=== PATIENT | male | born 1960 | race Caucasian/White ===

== ENCOUNTER 2020-03-11 11:45 | Outpatient (CLI) | payer BC, SELFPAY ==
[2020-03-11 11:56] LABS: Basophils Absolute Auto 0.03 K/mm3 (0.00-0.10); Basophils Percent Auto 0.4 % (0.0-1.0); Eosinophils Percent Auto 1.4 % (1.0-6.0); Hematocrit 43.6 % (40.0-54.0); Immature Granulocyte Absolute 0.03 K/mm3 (0.00-0.00); Immature Granulocyte Percent A 0.4 % (0.0-0.0); Lymphocytes Absolute Auto 2.03 K/mm3 (1.10-4.50); Lymphocytes Percent Auto 28.1 % (18.0-42.0); Mean Corpuscular HGB Conc 34.4 g/dL (32.0-36.0); Mean Corpuscular Hemoglobin 30.2 pg (27.0-31.0); Mean Corpuscular Volume 87.9 fL (78.0-102.0); Mean Platelet Volume 10.7 fl (8.7-11.0); Monocytes Absolute Auto 0.84 K/mm3 (0.10-0.90); Monocytes Percent Auto 11.6 % (2.0-11.0); Neutrophils Absolute Auto 4.2 K/mm3 (1.7-7.2); Neutrophils Percent Auto 58.1 % (50.0-70.0); Platelet Count Result 237 K/mm3 (150-420); Red Blood Count 4.96 M/mm3 (4.70-6.10); White Blood Count 7.2 K/mm3 (4.8-10.8)
[2020-03-11 13:00] LABS: Hemoglobin A1C 6.8 % (<5.7)
[2020-03-11 13:03] LABS: Alanine Aminotransferase 51 U/L (16-63); Albumin Level 4.5 g/dL (3.4-5.0); Alkaline Phosphatase 108 U/L (46-116); Anion Gap 13.4 mmol/L (7-16); Aspartate Amino Transferase 37 U/L (15-37); Bilirubin,Total 0.7 mg/dL (0.00-1.00); Blood Urea Nitrogen 17 mg/dL (7-18); Carbon Dioxide 28 mmol/L (21-32); Chloride 104 mmol/L (98-108); Cholesterol 185 mg/dL (0-200); Estimated Glomerular Filt Rate > 60; Glucose 132 mg/dL (70-99); HDL Direct 43 mg/dL (40-60); LDL Cholesterol Calculated 117 mg/dL (<130); Magnesium 2.2 mg/dL (1.8-2.4); Osmolality Calculated 295 mOsm/kg (285-295); Potassium 4.4 mmol/L (3.5-5.1); Sodium 141 mmol/L (136-145); Total Protein 7.6 g/dL (6.4-8.2); Triglycerides 127 mg/dL (0-150)
[2020-03-14 11:15] LABS: Vitamin D 25 Hydroxy 30 ng/mL (30-100)
== END 2020-03-11 11:46 | disposition home or self-care (01) ==
LOC: CHSLAB 11:49
PROVIDERS: PCP Nurse Practitioner Family; Visit Provider Nurse Practitioner Family
DX: Z00.00 Encounter for general adult medical examination without abnormal findings (principal); E78.5 Hyperlipidemia, unspecified; I10 Essential (primary) hypertension; E11.9 Type 2 diabetes mellitus without complications; R29.6 Repeated falls
CPT/HCPCS: 36415; 80053; 80061; 82306; 83036; 83735; 85025

== ENCOUNTER 2020-03-19 07:18 | Outpatient (CLI) | payer BC, SELFPAY ==
--- NOTE | ~2020-03-19 | XR_ITS ---
EXAMINATION: XR shoulder LT min 2V DATE: 03/19/2020 07:46 INDICATION: Primary osteoarthritis, unspecified site. Left shoulder pain. TECHNIQUE: 4 views of left shoulder were obtained. COMPARISON: Left shoulder radiographs 03/20/2019 FINDINGS: Bone alignment is normal. No fracture. There is mild osteoarthritis of glenohumeral joint a nd moderate osteoarthritis of acromioclavicular joint. There are loose bodies in the axillary recess of the glenohumeral joint. IMPRESSION: 1. Polyarticular osteoarthritis. 2. Loose bodies in the glenohumeral joint. Reviewed, dictated and finalized at location A.
== END 2020-03-19 07:19 | disposition home or self-care (01) ==
PROVIDERS: PCP Nurse Practitioner Family; Visit Provider Nurse Practitioner Family
DX: M19.91 Primary osteoarthritis, unspecified site (principal)
CPT/HCPCS: 73030

== ENCOUNTER 2020-08-13 08:50 | Outpatient (CLI) | payer BC, SELFPAY ==
--- NOTE | ~2020-08-13 | XR_ITS ---
XR finger 3rd LT min 2V 08/13/2020 09:11 Indication: Pain left third PIP joint Procedure: 3 views left third finger Comparison: No prior studies for comparison. Findings: There is an age-indeterminate avulsion fracture ventral base left third middle phalanx at t he PIP joint. No significant soft tissue abnormality. No foreign bodies. Impression: 1: Age-indeterminate avulsion fracture ventral base left third middle phalanx. Reviewed, dictated and finalized at location B. 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
== END 2020-08-13 08:51 | disposition home or self-care (01) ==
LOC: CHSIMG 08:52
PROVIDERS: PCP Family Medicine; Visit Provider Family Medicine
DX: M79.645 Pain in left finger(s) (principal)
CPT/HCPCS: 73140

== ENCOUNTER 2020-09-02 11:43 | Outpatient (CLI) | payer BC, SELFPAY ==
--- NOTE | ~2020-09-02 | XR_ITS ---
EXAMINATION: XR shoulder RT min 2V INDICATION: Right shoulder pain TECHNIQUE: Five views of the right shoulder are submitted. COMPARISON: None FINDINGS: Normal alignment. No fracture. Glenohumeral and acromioclavicular joint spaces are normal. Soft tissues are unremarkable. IMPRESSION: 1. No acute osseous abnormality. Reviewed, dictated and finalized at location A. 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
== END 2020-09-02 11:44 | disposition home or self-care (01) ==
LOC: CHSIMG 11:45
PROVIDERS: PCP Family Medicine; Visit Provider Nurse Practitioner Family
DX: M25.511 Pain in right shoulder (principal)
CPT/HCPCS: 73030

== ENCOUNTER 2020-12-07 09:02 | Outpatient (CLI) | payer BC, SELFPAY ==
--- NOTE | ~2020-12-07 | US_ITS ---
EXAMINATION: US retroperitoneal comp DATE: 12/07/2020 10:36 INDICATION: Frequency of micturition TECHNIQUE: Multiple ultrasound grayscale images of the kidneys were obtained. COMPARISON: None. FINDINGS: The right kidney measures 11.1 x 5.0 x 5.4 cm. The left kidney measures 12.0 x 5.7 x 6.1 cm. The kidn eys demonstrate normal echogenicity. There is no hydronephrosis in either kidney. No stones identifi ed. The bladder is normal with calculated prevoid volume of 150 mL and normal calculated postvoid vol ume of 15 mL. IMPRESSION: 1. Normal kidneys without hydronephrosis. 2. Normal bladder with a calculated postvoid residual bladder volume of 15 mL. Reviewed, dictated and finalized at location A.
[2020-12-07 10:26] LABS: Hemoglobin A1C 7.6 % (<5.7)
== END 2020-12-07 09:03 | disposition home or self-care (01) ==
LOC: CHSLAB 09:05
PROVIDERS: PCP Family Medicine; Visit Provider Family Medicine
DX: R35.0 Frequency of micturition (principal); E11.9 Type 2 diabetes mellitus without complications
CPT/HCPCS: 36415; 76770; 83036; 84153; G0103

== ENCOUNTER 2021-06-25 08:40 | Outpatient (CLI) | payer BC, SELFPAY ==
[2021-06-25 08:58] LABS: Hemoglobin A1C 6.2 % (<5.7)
[2021-06-25 09:20] LABS: Alanine Aminotransferase 39 U/L (16-63); Albumin Level 3.9 g/dL (3.4-5.0); Alkaline Phosphatase 93 U/L (46-116); Anion Gap 8 mmol/L (8-16); Aspartate Amino Transferase 22 U/L (15-37); Bilirubin,Total 0.5 mg/dL (0.00-1.00); Blood Urea Nitrogen 10 mg/dL (7-18); Calcium 9.3 mg/dL (8.5-10.1); Carbon Dioxide 28 mmol/L (21-32); Chloride 104 mmol/L (98-108); Cholesterol 118 mg/dL (0-200); Estimated Glomerular Filt Rate > 60; Glucose 119 mg/dL (70-99); HDL Direct 41 mg/dL (40-60); LDL Cholesterol Calculated 58 mg/dL (<130); Osmolality Calculated 290 mOsm/kg (285-295); Potassium 3.9 mmol/L (3.5-5.1); Sodium 140 mmol/L (136-145); Total Protein 6.6 g/dL (6.4-8.2); Triglycerides 95 mg/dL (0-150)
== END 2021-06-25 08:41 | disposition home or self-care (01) ==
PROVIDERS: PCP Family Medicine; Visit Provider Internal Medicine Cardiovascular Disease
DX: E78.5 Hyperlipidemia, unspecified (principal); E11.9 Type 2 diabetes mellitus without complications
CPT/HCPCS: 36415; 80053; 80061; 83036

== ENCOUNTER 2022-03-28 15:00 | Outpatient (CLI) | payer BC, SELFPAY ==
--- NOTE | ~2022-03-28 | XR_ITS ---
XR knee RT 3V DATE: 03/28/2022 15:34 INDICATION: Medial knee pain for 3 weeks. No known injury. TECHNIQUE: AP, lateral, sunrise views COMPARISON: None FINDINGS: No fracture or dislocation or joint effusion. No periosteal reaction or bone destruction. J oint spaces are well preserved. No radiopaque intra-articular loose body or chondrocalcinosis. IMPRESSION: No significant abnormality Reviewed, dictated and finalized at location B. IMPRESSION: No significant abnormality
[2022-03-28 15:59] LABS: Prostate Specific Antigen 6.6 ng/mL (< OR = 4.0); Uric Acid 6.6 mg/dL (3.5-7.2)
[2022-04-02 20:18] LABS: Vitamin D 25 Hydroxy 44 ng/mL (30-100)
== END 2022-03-28 15:01 | disposition home or self-care (01) ==
LOC: CHSLAB 15:04
PROVIDERS: Nurse Practitioner Family; PCP Family Medicine; Visit Provider Family Medicine
DX: E55.9 Vitamin D deficiency, unspecified (principal); M10.9 Gout, unspecified; R35.1 Nocturia; R35.0 Frequency of micturition; M25.561 Pain in right knee
CPT/HCPCS: 36415; 73562; 82306; 84153; 84550; G0103

== ENCOUNTER 2022-03-31 12:02 | Outpatient (CLI) | payer BC, SELFPAY ==
--- NOTE | ~2022-03-31 | US_ITS ---
EXAMINATION: US retroperitoneal comp DATE: 03/31/2022 12:47 INDICATION: Frequency of micturition. TECHNIQUE: Multiple ultrasound grayscale images of the kidneys were obtained. COMPARISON: Ultrasound 12/07/2020 FINDINGS: The right kidney measures 11.4 x 5.4 x 4.9 cm. The left kidney measures 12.0 x 5.5 x 6.7 cm. The kidn eys demonstrate normal parenchymal echogenicity. There is a 1.8 cm cyst in right kidney. There is a 1 3 mm anechoic and hypoechoic mass in right kidney. There is no hydronephrosis. The bladder is normal. The postvoid bladder volume is 72 mm. IMPRESSION: 1. 13 mm right kidney mass, which may be a hemorrhagic cyst or neoplasm. Abdomen CT or MRI without a nd with contrast is recommended. Reviewed, dictated and finalized at location A. IMPRESSION: 1. 13 mm right kidney mass, which may be a hemorrhagic cyst or neoplasm. Abdom en CT or MRI without and with contrast is recommended.
== END 2022-03-31 12:03 | disposition home or self-care (01) ==
LOC: CHSIMG 12:03
PROVIDERS: PCP Family Medicine; Visit Provider Family Medicine
DX: R35.0 Frequency of micturition (principal)
CPT/HCPCS: 76770

== ENCOUNTER 2022-04-09 08:08 | Outpatient (CLI) | payer BC, SELFPAY ==
--- NOTE | ~2022-04-09 | MR_ITS ---
EXAMINATION: MR abdomen wo/w con DATE: 04/09/2022 11:02 INDICATION: Kidney mass TECHNIQUE: Magnetic resonance imaging (MRI) of the abdomen was performed without and with 20 mL Multi mahi intravenous contrast. Sequences included coronal T2-weighted SS-FSE, coronal and axial FS 2D-F IESTA, axial STIR FSE, axial T2-weighted SS-FSE, axial T2-weighted FS SS-FSE, axial diffusion-weighte d SE, axial dual-echo T1-weighted FSPGR, and axial and coronal T1-weighted LAVA. Postcontrast axial T 1-weighted LAVA images were obtained in a time course. Postcontrast coronal T1-weighted LAVA images w ere obtained. COMPARISON: Ultrasound dated 03/31/2022 FINDINGS: Heart size is normal. No pericardial or pleural effusion. Liver, partially decompressed gallbladder, spleen, pancreas and bilateral adrenal glands are normal. There are bilateral T2 hyperintense nonenha ncing cysts, the largest in the right kidney measuring up to 2.3 cm. Therefore T1 to lesser degree T2 hyperintense hemorrhagic cysts without evident enhancement on postcontrast imaging position in the u pper pole of the right kidney the largest measuring up to 12 mm in maximal diameter correlating with the lesion identified on the prior ultrasound. Visual is portions of the bowels are unremarkable. No pathologically enlarged abdominal bones are unremarkable. lymphadenopathy. IMPRESSION: 1. Multiple bilateral renal cysts including 4 proteinaceous/hemorrhagic cysts at the upper pole of th e right kidney including the lesion of concern identified on prior ultrasound. Reviewed, dictated and finalized at location A. IMPRESSION: 1. Multiple bilateral renal cysts including 4 proteinaceous/hemorrhagic cysts a t the upper pole of the right kidney including the lesion of concern identified on prior ultrasound.
[2022-04-09 08:28] LABS: Estimated Glomerular Filt Rate > 60
== END 2022-04-09 08:09 | disposition home or self-care (01) ==
LOC: CHSIMG 08:09
PROVIDERS: PCP Family Medicine; Visit Provider Family Medicine
DX: R93.5 Abnormal findings on diagnostic imaging of other abdominal regions, including retroperitoneum (principal); N28.9 Disorder of kidney and ureter, unspecified; N28.89 Other specified disorders of kidney and ureter
CPT/HCPCS: 74183; A9577

== ENCOUNTER 2022-07-15 01:49 | Day surgery (SDC) | payer BC, SELFPAY ==
--- NOTE | 2022-07-08 11:46 | PC.NURSE ---
spoke with - pt at work with [employer], unable to take calls, will convey message to pt to hold plavix starting Monday07/11/2022, and will have pt to call me during lunch hour or will get information to give me herself.
[2022-07-11 14:00] VITALS: BMI 25.7
--- NOTE | 2022-07-14 15:21 | PM.HPGS ---
History of Present Illness History of Present Illness Consent: Risks, benefits, and alternatives have been discussed and questions answered. Patient agrees to proceed with procedure. Chief complaint: Change in bowel habits Narrative: Robbin Gonzalez is a 62 year old male Who was referred because of a change in bowel habits. He will have very thin caliber stools for several days and then will not have a bowel movement for couple of days. He has also had pain in the area of his tailbone. . Denies seeing blood in the stools. A Cologuard test was -3 years ago. MRI recently was done which was negative except for renal cysts. Review of Systems Review of Systems: All systems reviewed & are unremarkable except as noted in HPI and below PMFSH Past Medical History Medical History Change in bowel habit Common wart DM2 (diabetes mellitus, type 2) Femoral-femoral bypass graft thrombosis, left Finger fracture, left Finger pain, left Hyperlipidemia Hypertension Narrowing of stools Primary osteoarthritis Sacral pain Surgical History Surgical History History of cholecystectomy Family History Family History Father Family history of dementia Mother Family history of type 2 diabetes mellitus Other Family history of arthritis Family history of malignant neoplasm Social History Social History Smoking packs per day: 1 Smoking cigarettes per day: 20.0 Years smoked: 20 Smoking pack-years: 20.00 Smoking status: Former smoker Tobacco type: cigarettes Smoking end date: 09/11/08 Alcohol intake: never Substance use: never Substance use type: does not use Living arrangements: with family Additional living arrangements comments: . 1 Step-child. Spiritual care concerns: No Meds Home Medications and Allergies Home Medications Medication Instructions Recorded Confirmed Type aspirin 81 mg tablet,delayed 81 mg PO DAILY 09/23/19 07/11/22 History release (Adult Low Dose Aspirin) blood-glucose meter (FreeStyle #1 ea 12/23/20 06/28/22 Rx Lite Meter kit) dulaglutide 1.5 mg/0.5 mL 1.5 mg (0.5 mL) subcut WEEKLY 90 06/06/22 07/11/22 Rx subcutaneous pen injector days #6.5 mL (Trulicity) amlodipine 5 mg tablet 5 mg PO DAILY 07/11/22 07/11/22 History clopidogrel 75 mg tablet 75 mg PO DAILY 07/11/22 07/11/22 History finasteride 5 mg tablet 5 mg PO DAILY 07/11/22 07/11/22 History metformin 1,000 mg tablet 1,000 mg PO BID 07/11/22 07/11/22 History rosuvastatin 20 mg tablet 20 mg PO DAILY 07/11/22 07/11/22 History tamsulosin 0.4 mg capsule 0.4 mg PO DAILY 07/11/22 07/11/22 History Allergies Allergy/AdvReac Type Severity Reaction Status Date / Time prednisone Allergy Severe Swelling Verified 07/15/22 09:22 rofecoxib [Vioxx] AdvReac Intermediate Nausea and Verified 07/15/22 09:22 Vomiting Exam Const: General: alert Orientation/consciousness: patient oriented x3 Resp: Auscultation: clear to auscultation bilaterally Cardio: Rhythm: regular rhythm GI: GI Palp: Yes Soft to palpation and No Tenderness to palpation present (GI) Neuro: General: patient oriented x3 Assessment and Plan Assessment and plan (1) Change in bowel habit: Code(s): R19.4 - Change in bowel habit Status: Acute Assessment and Plan: Colonoscopy with possible biopsy or polypectomy or cautery or injection of substances.
[2022-07-15 09:24] VITALS: BP 126/69; PULSE 78; RESP 18; TEMP 36.1; O2SAT 98
--- NOTE | 2022-07-15 09:39 | WPDANESEPPF ---
Anes - Initial Pre Proc Eval Procedure: Operation Date: 07/15/22 10:15 Proposed Procedures p Colonoscopy - Rodrigo Flaherty MD Date/Time: 07/15/22 09:39 Surgeon: Rodrigo Flaherty MD Pre Op Diagnosis: Change in bowel habits Patient Data Age: 62 Gender: M Height: 1.88 m Weight: 89.1 kg Last Vital Signs Temp 97 F L 07/15/22 09:24 Pulse 78 07/15/22 09:24 Resp 18 07/15/22 09:24 BP 126/69 07/15/22 09:24 Pulse Ox 98 07/15/22 09:24 O2 Del Method Room Air 07/15/22 09:24 Allergies Allergy/AdvReac Type Severity Reaction Status Date / Time prednisone Allergy Severe Swelling Verified 07/15/22 09:22 rofecoxib [Vioxx] AdvReac Intermediate Nausea and Verified 07/15/22 09:22 Vomiting Home Medications Medication Instructions Recorded Confirmed Type aspirin 81 mg tablet,delayed 81 mg PO DAILY 09/23/19 07/11/22 History release (Adult Low Dose Aspirin) blood-glucose meter (FreeStyle #1 ea 12/23/20 06/28/22 Rx Lite Meter kit) dulaglutide 1.5 mg/0.5 mL 1.5 mg (0.5 mL) subcut WEEKLY 90 06/06/22 07/11/22 Rx subcutaneous pen injector days #6.5 mL (Trulicity) amlodipine 5 mg tablet 5 mg PO DAILY 07/11/22 07/11/22 History clopidogrel 75 mg tablet 75 mg PO DAILY 07/11/22 07/11/22 History finasteride 5 mg tablet 5 mg PO DAILY 07/11/22 07/11/22 History metformin 1,000 mg tablet 1,000 mg PO BID 07/11/22 07/11/22 History rosuvastatin 20 mg tablet 20 mg PO DAILY 07/11/22 07/11/22 History tamsulosin 0.4 mg capsule 0.4 mg PO DAILY 07/11/22 07/11/22 History Patient hx anesthesia problems: none Family hx anesthesia problems: none Results Review: All pre-operative results and documents have been reviewed as part of the pre-operative evaluation. [facility] Past Medical History Medical History (Updated 06/28/22 @ 14:28 by Soraya Corona APRN) Change in bowel habit Common wart DM2 (diabetes mellitus, type 2) Femoral-femoral bypass graft thrombosis, left Finger fracture, left Finger pain, left Hyperlipidemia Hypertension Narrowing of stools Primary osteoarthritis Sacral pain Surgical History Surgical History History of cholecystectomy Family History Family History Father Family history of dementia Mother Family history of type 2 diabetes mellitus Other Family history of arthritis Family history of malignant neoplasm Social History Social History Smoking packs per day: 1 Smoking cigarettes per day: 20.0 Years smoked: 20 Smoking pack-years: 20.00 Smoking status: Former smoker Tobacco type: cigarettes Smoking end date: 09/11/08 Alcohol intake: never Substance use: never Substance use type: does not use Living arrangements: with family Additional living arrangements comments: . 1 Step-child. Spiritual care concerns: No Anes - Eval Final PreProcedure Day of Procedure 07/15/22 09:39 Patient weight: normal Heart: regular rate and rhythm Lungs: clear to auscultation Airway: Mallampati scale class II Neurological: alert and oriented Last oral intake: >/= 8 hours ASA classification: III Emergent: no Anesthetic plan: proceed Anesthesia type and monitoring: general GIVS and standard monitoring Results Review: All pre-operative results and documents have been reviewed as part of the pre-operative evaluation. Informed Consent: The patient's anesthetic plan and its attendant risks and benefits were discussed with the patient/family/POA. Questions were solicited and answers provided to the satisfaction of the patient/family/POA.
[2022-07-15] MEDS: LACTATED RINGERS 1,000 ML 150 ML IV CONT (09:41)
[2022-07-15 09:45] LABS: Glucose Point of Care 101 mg/dl (65-105)
[2022-07-15 10:22] VITALS: BP 108/71; PULSE 77; RESP 23; O2SAT 98
[2022-07-15 10:32] VITALS: BP 111/68; PULSE 77; RESP 24; O2SAT 98
[2022-07-15 10:42] VITALS: BP 112/79; PULSE 71; RESP 24; O2SAT 99
== END 2022-07-15 10:45 | disposition home or self-care (01) ==
PROVIDERS: PCP Family Medicine; Visit Provider Internal Medicine Gastroenterology
PROC: 0DJD8ZZ Inspection of Lower Intestinal Tract, Via Natural or Artificial Opening Endoscopic (ICD-10-PCS; CPT 45378; principal; 2022-07-15 10:15)
DX: R19.4 Change in bowel habit (principal); D12.4 Benign neoplasm of descending colon; E11.9 Type 2 diabetes mellitus without complications; E78.5 Hyperlipidemia, unspecified; I10 Essential (primary) hypertension; Z87.891 Personal history of nicotine dependence
CPT/HCPCS: 45385; 82948; 88305; J2001; J2704; J7120

== ENCOUNTER 2023-02-03 09:27 | Outpatient (CLI) | payer OTHER, SELFPAY ==
[2023-02-03 09:43] LABS: Hematocrit 42.7 % (37.0-46.0); Hemoglobin 14.2 g/dL (12.4-15.3); Mean Corpuscular HGB Conc 33.3 g/dL (32.0-36.0); Mean Corpuscular Hemoglobin 29.5 pg (27.0-31.0); Mean Corpuscular Volume 88.8 fL (78.0-102.0); Mean Platelet Volume 10.6 fl (8.7-11.0); Platelet Count Result 270 K/mm3 (150-420); Red Blood Count 4.81 M/mm3 (4.70-6.10); Red Cell Distribution Width 13.2 % (11.6-14.4); White Blood Count 8.6 K/mm3 (4.8-10.8)
[2023-02-03 09:48] LABS: Creatinine Urine 80.85 mg/dL (40-278); MALB Creatinine Ratio 98.7 mg/g (0-30); Microalbumin Urine Random 79.8 mg/L
[2023-02-03 09:50] LABS: Hemoglobin A1C 6.3 % (<5.7)
[2023-02-03 10:28] LABS: Alanine Aminotransferase 59 U/L (16-63); Albumin Level 3.9 g/dL (3.4-5.0); Alkaline Phosphatase 118 U/L (46-116); Anion Gap 8 mmol/L (8-16); Aspartate Amino Transferase 38 U/L (15-37); Bilirubin,Total 0.6 mg/dL (0.00-1.00); Blood Urea Nitrogen 13 mg/dL (7-18); Calcium 9.5 mg/dL (8.5-10.1); Carbon Dioxide 27 mmol/L (21-32); Chloride 104 mmol/L (98-108); Cholesterol 124 mg/dL (0-200); Estimated Glomerular Filt Rate > 60; Glucose 119 mg/dL (70-99); HDL Direct 45 mg/dL (40-60); LDL Cholesterol Calculated 53 mg/dL (<130); Osmolality Calculated 289 mOsm/kg (285-295); Potassium 4.3 mmol/L (3.5-5.1); Prostate Specific Antigen 8.1 ng/mL (< OR = 4.0); Sodium 139 mmol/L (136-145); Total Protein 7.5 g/dL (6.4-8.2); Triglycerides 132 mg/dL (0-150); Uric Acid 5.1 mg/dL (3.5-7.2)
== END 2023-02-03 09:28 | disposition home or self-care (01) ==
LOC: CHSLAB 09:29
PROVIDERS: PCP Family Medicine; Visit Provider Family Medicine
DX: E11.9 Type 2 diabetes mellitus without complications (principal); I10 Essential (primary) hypertension; R35.1 Nocturia; M10.9 Gout, unspecified
CPT/HCPCS: 36415; 80053; 80061; 82043; 83036; 84153; 84550; 85027; G0103

== ENCOUNTER 2023-04-07 07:18 | Outpatient (CLI) | payer OTHER, SELFPAY ==
[2023-04-07 07:52] LABS: Uric Acid 6.4 mg/dL (3.5-7.2)
== END 2023-04-07 07:19 | disposition home or self-care (01) ==
PROVIDERS: PCP Family Medicine
DX: M10.9 Gout, unspecified (principal)
CPT/HCPCS: 36415; 84550

== ENCOUNTER 2023-04-18 08:35 | Outpatient (CLI) | payer OTHER, SELFPAY ==
--- NOTE | ~2023-04-18 | CT_ITS ---
Non-contrast CT scan of the Abdomen and Pelvis Clinical indication: Left groin swelling/lump Technique: 2.5 mm axial scans were obtained through the abdomen and pelvis without intravenous or or al contrast. Dose reduction technique was used on this scan by utilizing automated exposure control a nd iterative reconstruction technique. The dose-length product (DLP) was 782.02 mGy-cm. Findings: Images through the lung bases reveal no abnormalities. There is no evidence of renal or ureteral calculi. The kidneys and the ureters are nondilated. The liver, spleen, pancreas, gallbladder, and adrenals appear normal. There are atherosclerotic calci fications of the aorta. There is no evidence of bowel obstruction. Images through the pelvis were performed. There is no evidence of ascites or lymphadenopathy. Urinary bladder unremarkable. No pelvic mass evident. No hernia evident. There is focal postoperative change in the left inguinal region with probable surgical clips probably related to prior vascular surgery. Impression: Focal postoperative change in the left inguinal region, likely related to prior vascular surgery. Cor relate with surgical history. No hernia or other mass lesion evident. Reviewed, dictated and finalized at location . Impression: Focal postoperative change in the left inguinal region, likely related to prior vascular surgery. Correlate with surgical history. No hernia or other mass les ion evident.
== END 2023-04-18 08:36 | disposition home or self-care (01) ==
LOC: CHSIMG 08:36
PROVIDERS: PCP Family Medicine; Visit Provider Family Medicine
DX: R19.09 Other intra-abdominal and pelvic swelling, mass and lump (principal)
CPT/HCPCS: 74176

== ENCOUNTER 2023-06-26 07:00 | Outpatient (NON) | payer OTHER, SELFPAY | END 2023-06-26 07:01 | disposition home or self-care (01) | PROVIDERS: PCP Family Medicine; Visit Provider Internal Medicine Gastroenterology | DX: Z12.11 Encounter for screening for malignant neoplasm of colon (principal); D12.8 Benign neoplasm of rectum | CPT/HCPCS: 88305 ==

== ENCOUNTER 2023-06-26 08:59 | Day surgery (SDC) | payer OTHER, SELFPAY ==
[2023-06-07 12:46] VITALS: BMI 26.0
--- NOTE | 2023-06-07 13:49 | PC.NURSE ---
PRE OP phone call made to [facility]. 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 he takes the plavix due to a fem fem bypass surgery in 2010 and also quit smoking at that time. We discussed his home medications and decided it was better to hold all morning medications for less confusion. he is doing a 2 day cleanse d/t poor prep last June 2022, where they also found polyps. he is waiting for his instructions in the mail from the office.
--- NOTE | 2023-06-23 14:45 | PM.HPGS ---
History of Present Illness History of Present Illness Consent: Risks, benefits, and alternatives have been discussed and questions answered. Patient agrees to proceed with procedure. Chief complaint: History of Colon Polyps Narrative: Robbin Gonzalez is a 63 year old male Referred for colon cancer screening. He had colonoscopy last year was removal of 1 tubular adenoma. At that time his prep was suboptimal therefore he returns for hopefully a more thorough examination today. Review of Systems Review of Systems: All systems reviewed & are unremarkable except as noted in HPI and below PMFSH Past Medical History Medical History Change in bowel habit Common wart DM2 (diabetes mellitus, type 2) Femoral-femoral bypass graft thrombosis, left Finger fracture, left Finger pain, left Hyperlipidemia Hypertension Narrowing of stools Primary osteoarthritis Sacral pain Surgical History Surgical History History of cholecystectomy Family History Family History Father Family history of dementia Mother Family history of type 2 diabetes mellitus Other Family history of arthritis Family history of malignant neoplasm Social History Social History Smoking packs per day: 1 Smoking cigarettes per day: 20.0 Years smoked: 20 Smoking pack-years: 20.00 Smoking status: Former smoker Tobacco type: cigarettes Smoking end date: 09/11/08 Alcohol intake: never Substance use: never Substance use type: does not use Lack of Transportation: No Lack of Food: Never True Current Housing: I Have Housing Concerned About Future Housing: No Difficulty Paying Gas/Electric Bills: No Difficulty Paying for Meds: No Currently Unemployed: No Education: Associate Degree Difficulty w/ Childcare or Family Care: No Living arrangements: with family Additional living arrangements comments: Spiritual care concerns: No Meds Home Medications and Allergies Home Medications Medication Instructions Recorded Confirmed Type aspirin 81 mg tablet,delayed 81 mg PO DAILY 09/23/19 06/26/23 History release (Adult Low Dose Aspirin) blood-glucose meter (FreeStyle #1 ea 12/23/20 06/26/23 Rx Lite Meter kit) finasteride 5 mg tablet 5 mg PO DAILY 07/11/22 06/26/23 History clopidogrel 75 mg tablet 75 mg PO DAILY #90 tabs 10/20/22 06/26/23 Rx dulaglutide 1.5 mg/0.5 mL 1.5 mg (0.5 mL) subcut WEEKLY 90 10/20/22 06/26/23 Rx subcutaneous pen injector days #6.5 mL (Trulicity) metformin 1,000 mg tablet 1,000 mg PO BID #180 tabs 10/20/22 06/26/23 Rx rosuvastatin 20 mg tablet See Rx Instructions .Route 10/20/22 06/26/23 Rx .COMPLEX #90 tabs lisinopril 10 mg tablet 10 mg PO DAILY #90 tabs 02/27/23 06/26/23 Rx colchicine (gout) 0.6 mg tablet 0.6 mg PO BID 04/13/23 06/26/23 History lactulose 10 gram/15 mL oral 10 g (15 mL) PO DAILY PRN 06/14/23 06/26/23 Rx solution constipation #237 mL Allergies Allergy/AdvReac Type Severity Reaction Status Date / Time prednisone Allergy Severe Swelling Verified 06/26/23 11:40 rofecoxib [Vioxx] AdvReac Intermediate Nausea and Verified 06/26/23 11:40 Vomiting Exam Resp: Auscultation: clear to auscultation bilaterally Cardio: Rate: regular rate Rhythm: regular rhythm GI: GI Palp: Yes Soft to palpation and No Tenderness to palpation present (GI) Assessment and Plan Assessment and plan (1) Colon cancer screening: Code(s): Z12.11 - Encounter for screening for malignant neoplasm of colon Status: Acute Assessment and Plan: Colonoscopy with possible biopsy or polypectomy or cautery or injection of substances.
[2023-06-26 11:54] VITALS: BP 146/98; PULSE 105; RESP 16; TEMP 36.7; O2SAT 100
[2023-06-26] MEDS: LACTATED RINGERS 1,000 ML 150 ML IV CONT (11:57)
--- NOTE | 2023-06-26 12:23 | WPDANESEPPF ---
Anes - Initial Pre Proc Eval Procedure: Operation Date: 06/26/23 13:00 Proposed Procedures p Diagnostic Colonoscopy - Rodrigo Flaherty MD Date/Time: 06/26/23 12:23 Surgeon: Rodrigo Flaherty MD Pre Op Diagnosis: History of Colon Polyps Patient Data Age: 63 Gender: M Height: 1.88 m Weight: 87.85 kg Last Vital Signs Temp 36.7 C 06/26/23 11:54 Pulse 105 H 06/26/23 11:54 Resp 16 06/26/23 11:54 BP 146/98 H 06/26/23 11:54 Pulse Ox 100 06/26/23 11:54 O2 Del Method Room Air 06/26/23 11:54 Allergies Allergy/AdvReac Type Severity Reaction Status Date / Time prednisone Allergy Severe Swelling Verified 06/26/23 11:40 rofecoxib [Vioxx] AdvReac Intermediate Nausea and Verified 06/26/23 11:40 Vomiting Home Medications Medication Instructions Recorded Confirmed Type aspirin 81 mg tablet,delayed 81 mg PO DAILY 09/23/19 06/26/23 History release (Adult Low Dose Aspirin) blood-glucose meter (FreeStyle #1 ea 12/23/20 06/26/23 Rx Lite Meter kit) finasteride 5 mg tablet 5 mg PO DAILY 07/11/22 06/26/23 History clopidogrel 75 mg tablet 75 mg PO DAILY #90 tabs 10/20/22 06/26/23 Rx dulaglutide 1.5 mg/0.5 mL 1.5 mg (0.5 mL) subcut WEEKLY 90 10/20/22 06/26/23 Rx subcutaneous pen injector days #6.5 mL (Trulicity) metformin 1,000 mg tablet 1,000 mg PO BID #180 tabs 10/20/22 06/26/23 Rx rosuvastatin 20 mg tablet See Rx Instructions .Route 10/20/22 06/26/23 Rx .COMPLEX #90 tabs lisinopril 10 mg tablet 10 mg PO DAILY #90 tabs 02/27/23 06/26/23 Rx colchicine (gout) 0.6 mg tablet 0.6 mg PO BID 04/13/23 06/26/23 History lactulose 10 gram/15 mL oral 10 g (15 mL) PO DAILY PRN 06/14/23 06/26/23 Rx solution constipation #237 mL Patient hx anesthesia problems: none Family hx anesthesia problems: none Results Review: All pre-operative results and documents have been reviewed as part of the pre-operative evaluation. [facility] Past Medical History Medical History Change in bowel habit Common wart DM2 (diabetes mellitus, type 2) Femoral-femoral bypass graft thrombosis, left Finger fracture, left Finger pain, left Hyperlipidemia Hypertension Narrowing of stools Primary osteoarthritis Sacral pain Surgical History Surgical History History of cholecystectomy Family History Family History Father Family history of dementia Mother Family history of type 2 diabetes mellitus Other Family history of arthritis Family history of malignant neoplasm Social History Social History Smoking packs per day: 1 Smoking cigarettes per day: 20.0 Years smoked: 20 Smoking pack-years: 20.00 Smoking status: Former smoker Tobacco type: cigarettes Smoking end date: 09/11/08 Alcohol intake: never Substance use: never Substance use type: does not use Lack of Transportation: No Lack of Food: Never True Current Housing: I Have Housing Concerned About Future Housing: No Difficulty Paying Gas/Electric Bills: No Difficulty Paying for Meds: No Currently Unemployed: No Education: Associate Degree Difficulty w/ Childcare or Family Care: No Living arrangements: with family Additional living arrangements comments: Spiritual care concerns: No Anes - Eval Final PreProcedure Day of Procedure 06/26/23 12:23 Patient weight: normal Heart: regular rate and rhythm Lungs: decreased breath sounds Airway: Mallampati scale class II Neurological: alert and oriented Last oral intake: >/= 8 hours ASA classification: III Emergent: no Anesthetic plan: proceed Anesthesia type and monitoring: general GIVS and standard monitoring Results Review: All pre-operative results and documents have been reviewed as part of the pre-operative evaluation.
[2023-06-26 13:01] VITALS: BP 121/80; PULSE 90; RESP 18; O2SAT 97
--- NOTE | 2023-06-26 13:06 | WPDANESPN ---
Anes - Prog Note Post-Op Date/Time: 06/26/23 13:06 Cardiovascular status: normal Respiratory status: normal Airway patency: baseline Mental status: baseline Post-Op hydration status: normal Vital Signs: Last Vital Signs Temp 36.7 C 06/26/23 11:54 Pulse 90 06/26/23 13:01 Resp 18 06/26/23 13:01 BP 121/80 06/26/23 13:01 Pulse Ox 97 06/26/23 13:01 O2 Del Method Room Air 06/26/23 13:01 Pain Score (VAS): 0 I/O: Intake & Output 06/25/23 06/26/23 06/26/23 23:59 07:59 15:59 Intake Total 500 Balance 500 Patient Feedback: Patient satisfied with anesthetic care.
[2023-06-26 13:11] VITALS: BP 122/79; PULSE 79; RESP 14; O2SAT 99
[2023-06-26 13:21] VITALS: BP 132/76; PULSE 64; RESP 14; O2SAT 100
== END 2023-06-26 13:35 | disposition home or self-care (01) ==
PROVIDERS: PCP Family Medicine; Visit Provider Internal Medicine Gastroenterology
PROC: 0DJD8ZZ Inspection of Lower Intestinal Tract, Via Natural or Artificial Opening Endoscopic (ICD-10-PCS; CPT 45378; principal; 2023-06-26 13:00)
DX: Z12.11 Encounter for screening for malignant neoplasm of colon (principal); D12.8 Benign neoplasm of rectum; K57.30 Diverticulosis of large intestine without perforation or abscess without bleeding
CPT/HCPCS: 45380

== ENCOUNTER 2023-09-28 12:47 | Outpatient (CLI) | payer OTHER, SELFPAY ==
--- NOTE | 2023-10-03 10:10 | WPDPFTINT ---
PFT Procedure Performed PFT Procedure Performed Plethysmography (Lung Vol) Diffusing Cap (DLCO) Flow Vol Loop Spirometry w/o Bronchodil PFT Interpretation DOS: 09/28/2023 REQUESTING: Dr. Thomas George REASON FOR TESTING: dyspnea PULMONARY FUNCTION TESTS Results are reliable and reproducible. Spirometry: FEV1 is 3.54 L, 93% predicted, normal. FVC is 4.56 L, 94% predicted, normal. FEV1/ FVC ratio is 78%, normal. No bronchodilator was administered. Lung volumes: Total lung capacity is 6.98 L, 93%, normal. Residual volume is 2.42 L, 89%, normal. RV/ TLC is 35%, normal. Airway resistance 249%, elevated. Diffusion: DLCO is 21.4, 86% predicted, normal. DLCO /VA is 3.19, 86% predicted, normal. Flow volume loop: Normal IMPRESSION: This study shows normal spirometry, normal lung volumes and normal diffusion. No bronchodilator was administered. There are no prior studies for comparison. Chaya Sloan MD
== END 2023-09-28 12:48 | disposition home or self-care (01) ==
LOC: CHSCARD 12:48
PROVIDERS: PCP Family Medicine; Visit Provider Family Medicine
DX: R06.00 Dyspnea, unspecified (principal)
CPT/HCPCS: 94010; 94726; 94729

== ENCOUNTER 2023-09-29 11:47 | Outpatient (CLI) | payer OTHER, SELFPAY ==
[2023-09-29 12:45] LABS: Prostate Specific Antigen 15.1 ng/mL (< OR = 4.0)
== END 2023-09-29 11:48 | disposition home or self-care (01) ==
LOC: ANHLAB 11:49
PROVIDERS: PCP Family Medicine; Visit Provider Nurse Practitioner
DX: R10.2 Pelvic and perineal pain (principal); R97.20 Elevated prostate specific antigen [PSA]
CPT/HCPCS: 36415; 84153; G0103

== ENCOUNTER 2023-10-09 07:37 | Outpatient (CLI) | payer OTHER, SELFPAY ==
--- NOTE | 2023-10-09 07:41 | EST_ITS ---
Patient Info Name: Robbin Gonzalez Age: 63 years : 1960 Gender: Male Ht: 74 in Wt: 198 lbs BSA: 2.17 m2 HR: 70 bpm BP: 123 / 83 mmHg Heart Rhythm: Incomplete RBBB, Sinus Rhythm Technical Quality: Good Exam Date: 10/09/2023 9:21 AM Exam Location: Echo Lab Patient Status: Outpatient Admit Date: 10/09/2023 Any Known Allergies: Prednisone, Vioxx Staff Ordering Physician: Thomas George DO Attending Provider: Patti Prado NMAA Exam Type: CA stress fiona w NM Study Info A regadenoson stress test was performed. History/Risk Factors Hypertension: Yes Dyslipidemia: Yes Diabetes Mellitus: Yes Summary 1. 1. Negative lexiscan stress test for ischemic ST changes by ECG criteria. 2. 2. Stable hemodynamics throughout the test. 3. 3. Nuclear scan to follow and will be reported separately. Please correlate with it. Protocol: LEXISCAN Stress ECG Details Stage: REST Duration (min): 1 min : 1 sec HR (bpm): 68 SBP (mmHg): 127 DBP (mmHg): 83 Stage: REST Duration (min): 6 min : 30 sec HR (bpm): 70 SBP (mmHg): 127 DBP (mmHg): 83 Stage: STAGE 1 Duration (min): 0 min : 24 sec HR (bpm): 70 SBP (mmHg): 127 DBP (mmHg): 83 Stage: RECOVERY Duration (min): 0 min : 35 sec HR (bpm): 87 SBP (mmHg): 127 DBP (mmHg): 83 Stage: RECOVERY Duration (min): 1 min : 35 sec HR (bpm): 100 SBP (mmHg): 127 DBP (mmHg): 83 Stage: RECOVERY Duration (min): 2 min : 35 sec HR (bpm): 95 SBP (mmHg): 122 DBP (mmHg): 67 Stage: RECOVERY Duration (min): 3 min : 35 sec HR (bpm): 90 SBP (mmHg): 107 DBP (mmHg): 68 Stage: RECOVERY Duration (min): 4 min : 35 sec HR (bpm): 87 SBP (mmHg): 110 DBP (mmHg): 71 Stage: RECOVERY Duration (min): 5 min : 35 sec HR (bpm): 82 SBP (mmHg): 109 DBP (mmHg): 75 Stage: RECOVERY Duration (min): 6 min : 29 sec HR (bpm): --- SBP (mmHg): 109 DBP (mmHg): 75 Rest HR: 70 bpm Peak HR: 101 bpm Rest Sys BP: 127 mmHg Peak Sys BP: 125 mmHg Max Pred HR: 155 bpm % Max Pred HR: 65 % Target HR: 132 bpm Max RPP: 12,625 bpm*mmHg Termination Reason: Completed Protocol Cardiac Symptoms: None Total Time: 0 min : 24 sec Rest Coffman BP: 83 mmHg Peak Coffman BP: 66 mmHg Total Dose: 0.4 mg Resting ECG Normal sinus rhythm with incomplete RBBB. Stress ECG No abnormal ST/T wave changes. Arrhythmias None. Report Signatures
--- NOTE | 2023-10-09 13:53 | WPDCARIOSTRE ---
Nuclear Stress Test INDICATIONS Indications: SOB PROCEDURE Procedure Performed: Myocardial Perf Spect-Multi Procedure: Patient underwent a lexiscan stress test and was immediately injected with 32.7 mCi of cardiolyte. Multiple tomographic images were obtained. These are of good quality. There is no perfusion defects with stress imaging. A separate resting images were obtained after patient was injected with 10.2 mCi of cardiolyte. Multiple tomographic images were obtained. These are of good quality. There is no perfusion defects with rest imaging. CONCLUSION Conclusion: 1. Normal myocardial perfusion imaging demonstrating no perfusion defects with stress or rest imaging. 2. No reversible ischemia. 3. Left ventriculogram demonstrates normal measured ejection fraction of 64% with no wall motion abnormalities. 4. TID score 1.05 is normal.
== END 2023-10-09 07:38 | disposition home or self-care (01) ==
LOC: CHSCARD 07:38
PROVIDERS: PCP Family Medicine; Visit Provider Family Medicine
DX: R06.00 Dyspnea, unspecified (principal)
CPT/HCPCS: 78452; 93017; A9502; J2785

== ENCOUNTER 2023-10-17 09:20 | Outpatient (CLI) | payer OTHER, SELFPAY ==
--- NOTE | ~2023-10-17 | MR_ITS ---
EXAMINATION: MR pelvis wo/w con, MR sacrum wo/w con DATE: 10/17/2023 11:08 INDICATION: Constant perineal pain. Unable to feel passage of bowel movements TECHNIQUE: 1. Magnetic resonance imaging (MRI) of the pelvis was performed without and with 18 mL Multihance int ravenous contrast. Fullfield sequences of the pelvis included axial and coronal T2-weighted SS FSE, c oronal 2D FIESTA, axial T1-weighted FSPGR, axial dual-echo T1-weighted FSPGR and axial T1 weighted LA VA. Postcontrast sequences included a time course axial T1-weighted LAVA with full-field of view of t he pelvis. 2. MRI of the sacrum was performed without and with identical 18 mL MultiHance intravenous contrast b olus. Sequences included sagittal PD-weighted FS FSE, axial and coronal T1-weighted FSE and T2-weight ed FS FSE, coronal T2-weighted FSE, axial T1-weighted FS FSE and postcontrast axial and coronal T1-we ighted FS FSE. COMPARISON: CT abdomen pelvis dated 04/18/2023 FINDINGS: Trabeculated mucosal surface to the bladder which could be seen in the setting of chronic outlet obst ruction. There is enlargement of the prostate. There is heterogeneous enhancement of the prostate wit h suggestion of an approximately 3 cm nodular region in the left side of the prostate. There is asymm etry to the bilateral seminal vesicles with the left seminal vesicle which abuts the nodular region o f enhancement at the prostate demonstrating some mildly enhancing soft tissue density which replaces the nonenhancing T2 hyperintense typical appearance of the right seminal vesicle. Appearance is ric rning for prostate cancer with invasion of the seminal vesicle. There is linear enhancement extending along the asymmetrically thickened left mesorectal fascia also suspicious for local invasion. Visual ized portion of the bowels are unremarkable with no obstruction. No free fluid in the pelvis. There a re asymmetrically enlarged left external iliac chain lymph nodes, the largest measuring 1.9 x 1.2 cm. Additional mildly prominent left common iliac chain lymph node measuring 10 x 8 mm which is within n ormal limits but still suspicious. Bone alignment is normal. There is mild enhancement at the periphe ry of a T1 and T2 hypointense lesion at the left sacral ala which measures 3.5 cm medial to lateral a nd 3.4 cm craniocaudally involving the S4 and S5 segments is concerning for metastatic disease. Simil ar low T1 signal mildly enhancing impression 1.5 cm lesion with lobular margins at the medial margin of the subcapital right femur. No other suspicious bone lesions identified. IMPRESSION: 1. Prostatomegaly with 3 cm enhancing mass at the left side of the prostate which appears to invade t he left seminal vesicle with enhancement extending along the asymmetrically thickened left mesorectal fascia which is concerning for locally invasive prostate cancer. 2. Mild lymphadenopathy along the left external iliac chain measuring up to 1.9 x 1.2 cm and mildly p rominent but still normal-sized 10 x 8 mm left common iliac chain lymph node which are suspicious for metastatic disease. 3. 3.4 x 3.5 cm enhancing marrow replacing lesion in the left sacral ala and similar but smaller 1.5 cm lesion at the inferomedial aspect of the subcapital right femur, both suspicious for metastatic di sease. Reviewed, dictated and finalized at location A. RINGER IMPRESSION: 1. Prostatomegaly with 3 cm enhancing mass at the left side of the prostate whi ch appears to invade the left seminal vesicle with enhancement extending along the asymmetrically thickened left mesorectal fascia which is concerning for loc ally invasive prostate cancer. 2. Mild lymphadenopathy along the left external iliac chain measuring up to 1.9 x 1.2 cm and mildly prominent but still normal-sized 10 x 8 mm left common dayna a
== END 2023-10-17 09:21 | disposition home or self-care (01) ==
PROVIDERS: PCP Family Medicine; Visit Provider Nurse Practitioner
DX: N40.0 Benign prostatic hyperplasia without lower urinary tract symptoms (principal); K64.9 Unspecified hemorrhoids; R97.20 Elevated prostate specific antigen [PSA]; R59.0 Localized enlarged lymph nodes; M53.3 Sacrococcygeal disorders, not elsewhere classified; M89.8X5 Other specified disorders of bone, thigh
CPT/HCPCS: 72197; A9577

== ENCOUNTER 2023-11-10 13:10 | Outpatient (CLI) | payer OTHER, SELFPAY ==
--- NOTE | ~2023-11-10 | PE_ITS ---
EXAMINATION: PET_PETPSMAST_PT DATE: 11/10/2023 15:16 INDICATION: Prostate cancer. TECHNIQUE: 9.567 mCi of piflufolastat F-18 was administered intravenously. Low dose computed tomograp hy (CT) images were acquired from the base of the brain to the proximal thighs for attenuation correc tion and anatomic localization. Automated exposure control was employed. Dose-length product (DLP) wa s 733 mGy-cm. Positron emission tomography (PET) images were acquired in the same distribution. COMPARISON: CT abdomen and pelvis 04/18/2023, pelvis MRI 10/17/2023 FINDINGS: Head/neck: There are no pathologically enlarged lymph nodes. Chest: There is mild atelectasis bilaterally. No pleural effusion. The heart size is normal. There ar e coronary artery calcifications. No pericardial effusion. There is bilateral gynecomastia. Abdomen/pelvis/proximal thighs: The liver, spleen, pancreas, adrenal glands are normal. The gallbladd er is absent. There is a 2.4 cm cyst in right kidney. Left kidney is normal. There is calcified ather osclerosis of the aorta and many of the other arteries. The prostate is mildly enlarged. There is inc reased activity in the prostate with maximum SUV of 11.1. There is diffuse bladder wall thickening, l ikely secondary to chronic outlet obstruction. There are no dilated loops of bowel. There is a 1.7 x 1.2 cm left external iliac node with maximum SUV of 36.7. There is increased activity in normal-sized aortocaval, left para-aortic, left common iliac, left external iliac, and left internal iliac lymph nodes. There is a sclerotic lesion in the left sacrum with increased activity. There is a focus of sc lerosis in right femoral head without increased activity, likely a benign bone island.. There is a va scular graft in left thigh. IMPRESSION: 1. Mildly enlarged prostate with increased activity, consistent with primary malignancy. 2. Increased activity in retroperitoneal and pelvic lymph nodes, consistent with metastatic disease. 3. Sclerotic lesion in left sacrum with increased activity, consistent with metastatic disease. Reviewed, dictated and finalized at location A. TS PHOTOGRAPHER IMPRESSION: 1. Mildly enlarged prostate with increased activity, consistent with primary ma lignancy. 2. Increased activity in retroperitoneal and pelvic lymph nodes, consistent wit h metastatic disease. 3. Sclerotic lesion in left sacrum with increased activity, consistent with met astatic disease.
== END 2023-11-10 13:11 | disposition home or self-care (01) ==
PROVIDERS: PCP Family Medicine; Visit Provider Urology
DX: C61 Malignant neoplasm of prostate (principal)
CPT/HCPCS: 78815; A9595

== ENCOUNTER 2024-07-29 06:54 | Outpatient (CLI) | payer OTHER, SELFPAY ==
--- NOTE | ~2024-07-29 | NM_ITS ---
EXAMINATION: NM bone scan whole body DATE: 07/29/2024 11:36 INDICATION: Prostate cancer TECHNIQUE: 24.5 mCi Tc-99m HDP was administered intravenously. Delayed whole-body scintigrams were o btained. COMPARISON: PET/CT dated 11/10/2023. No more recent imaging available for comparison. FINDINGS: Likely degenerative joint centered uptake at the bilateral acromioclavicular, right sternoclavicular joints at the bilateral carpi and at the right first metatarsophalangeal joint. Additional likely deg enerative discogenic uptake at the lower cervical spine with severe degenerative disease evident on p rior PET/CT and associated with severe facet osteoarthritis at the right C3-C4 facet joint. The regio n of the previous noted PSA may avid sclerotic lesion at the caudal aspect of the left sacral ala is obscured by the intense bladder uptake and overlying shielding. No other suspicious foci of abnormal bone uptake to suggest additional osseous metastatic disease. IMPRESSION: 1. The region of the sclerotic lesion with increased PSA may uptake consistent with metastatic diseas e seen on the prior study at the inferior left sacral ala is obscured in the current study by activit y in the bladder and overlying shielding. No other lesions suspicious for osseous metastatic disease. Reviewed, dictated and finalized at location B. S NOVELTY MAKER IMPRESSION: 1. The region of the sclerotic lesion with increased PSA may uptake consistent with metastatic disease seen on the prior study at the inferior left sacral ala is obscured in the current study by activity in the bladder and overlying shie lding. No other lesions suspicious for osseous metastatic disease.
== END 2024-07-29 06:55 | disposition home or self-care (01) ==
LOC: ANHIMG 06:57
PROVIDERS: PCP Family Medicine; Visit Provider Urology
DX: C61 Malignant neoplasm of prostate (principal)
CPT/HCPCS: 78306; A9503

== ENCOUNTER 2024-08-02 09:22 | Outpatient (CLI) | payer OTHER, SELFPAY ==
--- NOTE | ~2024-08-02 | CT_ITS ---
EXAMINATION: CTA chest PE protocol DATE: 08/02/2024 17:19 INDICATION: Dyspnea. TECHNIQUE: Computed tomography angiography (CTA) of the chest was performed with 100 mL Omnipaque-350 intravenous contrast timed to evaluate the pulmonary arteries. Coronal maximum intensity projection 3D-reconstructions were created by the technologist. Automated exposure control and iterative reconst ruction technique were employed. The dose-length product was 523.74 mGy-cm. COMPARISON: CT abdomen and pelvis 04/18/2023, PET CT 11/10/2023 FINDINGS: The lungs demonstrate mild atelectasis. No pleural effusion. The heart size is normal. No p ericardial effusion. There are coronary artery calcifications. There is no pulmonary embolus. There i s a 2.6 cm cyst in right kidney. There is bilateral gynecomastia. There is mild thoracic spondylosis. There is mild chronic anterior wedging of multiple vertebral bodies. IMPRESSION: 1. No pulmonary embolus. Reviewed, dictated and finalized at location A. NG MATERIAL WEIGHER IMPRESSION: 1. No pulmonary embolus.
--- NOTE | ~2024-08-02 | XR_ITS ---
EXAMINATION: XR chest 2V DATE: 08/02/2024 17:21 INDICATION: Dyspnea, weakness and dizziness TECHNIQUE: PA and lateral views of the chest were obtained. COMPARISON: Chest radiograph dated 09/07/2018 FINDINGS: The lungs remain clear with no focal airspace opacities, pulmonary edema, pleural effusion or pneumot horax. The cardiomediastinal silhouette is normal. Mild thoracic spondylosis and chronic mild anterio r wedging of a few mid thoracic vertebral bodies. IMPRESSION: 1. No acute cardiopulmonary disease. Reviewed, dictated and finalized at location B. ID FLAVOR COMPOUNDER
[2024-08-02 09:33] LABS: Basophils Absolute Auto 0.04 K/mm3 (0.00-0.10); Basophils Percent Auto 0.6 % (0.0-1.0); Eosinophils Absolute Auto 0.16 K/mm3 (0.02-0.50); Eosinophils Percent Auto 2.3 % (1.0-6.0); Hemoglobin 14.4 g/dL (12.4-15.3); Immature Granulocyte Absolute 0.03 K/mm3 (0.00-0.00); Immature Granulocyte Percent A 0.4 % (0.0-0.0); Lymphocytes Absolute Auto 0.94 K/mm3 (1.10-4.50); Lymphocytes Percent Auto 13.8 % (18.0-42.0); Mean Corpuscular HGB Conc 34.3 g/dL (32-36); Mean Corpuscular Hemoglobin 29.8 pg (27.0-31.0); Mean Platelet Volume 10.4 fl (8.7-11.0); Monocytes Absolute Auto 0.86 K/mm3 (0.10-0.90); Monocytes Percent Auto 12.6 % (2.0-11.0); Neutrophils Absolute Auto 4.78 K/mm3 (1.70-7.20); Neutrophils Percent Auto 70.3 % (50.0-70.0); Platelet Count Result 278 K/mm3 (150-420); Red Blood Count 4.83 M/mm3 (4.70-6.10); Red Cell Distribution Width 13.8 % (11.6-14.4); White Blood Count 6.8 K/mm3 (4.8-10.8)
[2024-08-02 09:51] LABS: D Dimer 1.08 mg/L (0.19-0.50)
[2024-08-02 10:11] LABS: Alanine Aminotransferase 80 U/L (16-63); Albumin Level 4.1 g/dL (3.4-5.0); Alkaline Phosphatase 108 U/L (46-116); Anion Gap 11 mmol/L (4-12); Aspartate Amino Transferase 70 U/L (15-37); Bilirubin,Total 0.9 mg/dL (0.00-1.00); Blood Urea Nitrogen 13 mg/dL (7-18); Carbon Dioxide 29 mmol/L (21-32); Chloride 101 mmol/L (98-108); Estimated Glomerular Filt Rate > 60; Glucose 135 mg/dL (70-99); NT Pro B Type Natriuretic Pept 88 pg/mL (0-125); Osmolality Calculated 294 mOsm/kg (285-295); Potassium 4.6 mmol/L (3.5-5.1); Sodium 141 mmol/L (136-145); Total Protein 7.5 g/dL (6.4-8.2); Troponin I 7.8 ng/L (0.00-60.4)
== END 2024-08-02 09:23 | disposition home or self-care (01) ==
PROVIDERS: PCP Family Medicine; Visit Provider Family Medicine
DX: R06.00 Dyspnea, unspecified (principal); R53.1 Weakness; R42 Dizziness and giddiness; R79.1 Abnormal coagulation profile
CPT/HCPCS: 36415; 71046; 71275; 80053; 83880; 84484; 85025; 85380; Q9967

== ENCOUNTER 2024-10-02 12:07 | Outpatient (CLI) | payer OTHER, MEDICARE, SELFPAY ==
--- NOTE | 2024-10-02 12:55 | ECHO_ITS ---
Patient Info Name: Robbin Gonzalez Age: 64 years : 1960 Gender: Male Ht: 74 in Wt: 206 lbs BSA: 2.22 m2 HR: 90 bpm BP: 124 / 78 mmHg Technical Quality: Good Exam Date: 10/02/2024 1:06 PM Exam Location: Echo Lab Patient Status: Outpatient Admit Date: 10/02/2024 Any Known Allergies: Prednisone, Vioxx Staff Ordering Physician: Pedro Jane DO Residential Glazier: Joselin Taylor RDCS Attending Provider: Pedro Jane DO Referring Physician: Buck MEDINA; Exam Type: CA echo doppler color flow Study Info Indications - Palpitations, other forms of dyspnea Complete two-dimensional, color flow and Doppler transthoracic echocardiogram is performed. History/Risk Factors Hypertension: Yes Dyslipidemia: Yes Diabetes Mellitus: Yes Summary 1. Complete two-dimensional, color flow and Doppler transthoracic echocardiogram is performed. 2. Left ventricular chamber dimension is normal. 3. Left ventricular systolic function is normal, estimated at 60-65%. 4. The left ventricular diastolic function is grade I diastolic dysfunction. 5. E/e' 8 is minimally elevated. 6. Left atrial chamber dimension is mildly enlarged. 7. There is trace aortic valve regurgitation. 8. There is trace pulmonic regurgitation. 9. There is trivial pericardial effusion. Recommendations * Continue medical therapy for diabetes. Left Ventricle E/e' 8 is minimally elevated. Left ventricular chamber dimension is normal. Left ventricular systolic function is normal, estimated at 60-65%. The left ventricular diastolic function is grade I diastolic dysfunction. Right Ventricle Right ventricular systolic function is normal and with normal TAPSE 1.8 cm. Right ventricular chamber dimension is normal. Left Atria Left atrial chamber dimension is mildly enlarged. Right Atria Right atrial chamber dimension is normal. Aortic Valve The aortic valve is trileaflet. There is no aortic valve stenosis. There is trace aortic valve regurgitation. Pulmonic Valve There is trace pulmonic regurgitation. Mitral Valve There is no mitral valve stenosis. There is no mitral valve regurgitation. Tricuspid Valve There is no tricuspid valve regurgitation. Pericardium/Pleural There is trivial pericardial effusion. Inferior Vena Cava Normal inferior vena cava with >50% collapse upon inspiration consistent with normal right atrial pressure, 5 mmHg. Aorta The aortic root size at the sinus of Valsalva is normal. Left Ventricular Outflow Tract Name Value Normal LVOT 2D LVOT Diameter 2.0 cm LVOT Doppler LVOT Peak Gradient 8 mmHg LVOT Mean Gradient 5 mmHg LVOT VTI 18 cm LVOT VTI/AV VTI Ratio 0.7 LVOT Stroke Volume 60 ml LVOT CO 5.0 l/min LVOT CI 2.2 l/min/m2 Pulmonic Valve Name Value Normal PV Doppler PV Peak Gradient 4 mmHg PV Regurgitation Doppler CA Peak End Diastolic Velocity 122 cm/s Mitral Valve Name Value Normal MV Doppler MV Peak Gradient 4 mmHg MV Mean Gradient 1 mmHg MV Decel Carter 155 cm/s2 MV PHT 108 ms MV Area (PHT) 2.0 cm2 4.0-5.0 MV Area (Cont Eq VTI) 2.4 cm2 MV Diastolic Function MV E Peak Velocity 58 cm/s MV A Peak Velocity 90 cm/s MV E/A 0.6 MV Decel Time 373 ms MV Annular TDI MV E/e' (Septal) 14.8 <=8.0 MV E/e' (Lateral) 5.9 <=8.0 MV E/e' (Average) 10.4 Tricuspid Valve Name Value Normal Estimated PAP/RSVP RA Pressure 5 mmHg <=5 Aortic Valve Name Value Normal AV Doppler AV Peak Velocity 155 cm/s AV Peak Gradient 10 mmHg AV Mean Gradient 6 mmHg AV VTI 24 cm AV Area (Cont Eq VTI) 2.5 cm2 >=3.0 AV Area (Cont Eq Arun) 2.9 cm2 AV Regurgitation 2D LVOT Area 3.3 cm2 Ventricles Name Value Normal LV Dimensions 2D/MM IVS Diastolic Thickness (2D) 1.0 cm 0.6-1.0 LVID Diastole (2D) 5.4 cm 4.2-5.8 LVIW Diastolic Thickness (2D) 1.0 cm 0.6-1.0 LVID Systole (2D) 3.5 cm 2.5-4.0 LVOT Diameter 2.0 cm LV Mass (2D Cubed) 198.62 g 88.00-224.00 LV Mass Index (2D Cubed) 90 g/m2 49-115 Relative Wall Thickness (2D) 0.36 LV Fractional Shortening/Ejection Fraction 2D/MM LV Fractional Shortening (2D) 35 % 25-43 LV EF (2D Teicholz) 64 % 52-72 LV Diastolic Volume (4C MOD) 98 ml LV EF (4C MOD) 54 % LV Diastolic Length (4C) 8.0 cm LV Systolic Length (4C) 6.6 cm LV Stroke Volume (4C MOD) 53 ml Atria Name Value Normal LA Dimensions LA Volume (4C A-L) 56 ml RA Dimensions RA Area (4C) 17.8 cm2 <=18.0 Report Signatures
--- OUTSIDE RECORDS SUMMARY | 2024-10-04 00:10 | XMS_ITS | Clinical Summary ---
Author Organization [facility] Address [address] [place] [address] [place] [address] Care Team Providers Care Joy Operator Name Role Phone Ariel Thomas VEGA Primary Care Provider [phone] Allergies Active Allergy Reactions Criticality Noted Date Comments Prednisone Anaphylaxis High 08/17/2020 Medications amLODIPine 5 MG tablet Take 5 mg by mouth daily. 01/20/2020 Active vitamin D3, cholecalciferol , 1.25 MG (74353 UT) capsule 50,000 Units once a week. 07/12/2020 Active clopidogrel 75 MG tablet Take 75 mg by mouth daily. 01/11/2020 Active metFORMIN 1000 MG tablet Take 1,000 mg by mouth 2 (two) times daily. 12/20/2019 Active aspirin EC (ASPIRIN EC) 81 MG tablet Take 81 mg by mouth daily. Active rosuvastatin 20 MG tablet Take 20 mg by mouth nightly at bedtime. Active famotidine 20 MG tablet Take 20 mg by mouth daily. Active acetaminophen 500 MG tablet Take 500 mg by mouth 2 (two) times daily. Active COLCHICINE 0.6 MG tablet TAKE 1 TABLET BY MOUTH TWICE A DAY 42 tablet 2 12/25/2020 Active Active Problems Problem Noted Date Diagnosed Date Closed avulsion fracture of middle phalanx of finger, initial encounter 08/17/2020 Family History Medical History Relation Comments No Known Problems Brother 1 No Known Problems Brother 2 Liver Disease Brother 3 Dementia Father No Known Problems Maternal Grandfather No Known Problems Maternal Grandmother Diabetes Mother No Known Problems Paternal Grandfather No Known Problems Paternal Grandmother Cancer Sister 1 No Known Problems Sister 2 Relation Status Comments Brother 1 Alive Brother 2 Alive Brother 3 Father Maternal Grandfather Maternal Grandmother Mother Paternal Grandfather Paternal Grandmother Sister 1 Alive Sister 2 Alive Social History Tobacco Use Types Packs/Day Years Used Date Smoking Tobacco: Former Cigarettes Q uit: 2010 Smokeless Tobacco: Never Alcohol Use Standard Drinks/Week Comments Not Currently 0 (1 standard drink = 0.6 oz pur e alcohol) Sex and Gender Information Value Date Recorded Sex Assigned at Not on file Legal Sex Male 10:00 PM EXPERIENCE DESIGN DIRECTOR Gender Identity Not on file Sexual Orientation Not on file Last Filed Vital Signs Vital Sign Reading Time Taken Comments Blood Pressure - - Pulse - - Temperature - - Respiratory Rate - - Oxygen Saturation - - Inhaled Oxygen Concentration - - Weight 98.9 kg (218 lb) 08/31/2020 9:23 AM EXPERIENCE DESIGN DIRECTOR Height 188 cm (6' 2 ) 08/31/2020 9:23 AM EXPERIENCE DESIGN DIRECTOR Body Mass Index 27.99 08/31/2020 9:23 AM EXPERIENCE DESIGN DIRECTOR Plan of Treatment Health Maintenance Due Date Last Done Comments Colorectal Cancer Screening Colonoscopy (10 Years) 1960 Hepatitis C 01/07/1976 DTaP, Tdap and Td Vaccines ( 1 - Tdap) 1977 Zoster Vaccines (1 of 2) 01/07/2008 Pneumococcal Vaccine: 65+ Years (1 of 1 - PCV) 2023 COVID-19 Vaccine (1 - 2023-2 5 season) 2024 Influenza Adult (#1) 2024 07/09/2019, 07/02/2018, 08/15/2017 RSV Immunization or 60+ Years (1 - 1-dose 75+ series) 2033 Meningococcal Vaccine Aged Out No naya bernardo eligible based on patient's age to complete this topic RSV Immunizations Under 20 Months Aged Out No longer eligible b ased on patient's age to complete this topic Insurance Care Teams Joy Operator Relationship Specialty Start Date End Date Thomas George DO [address] [place] [address] PCP - General FAMILY PRACTICE 08/17/20
--- OUTSIDE RECORDS SUMMARY | 2024-10-04 00:10 | XMS_ITS | Data Portability ---
Author Organization [facility], [address] [facility] ([place] Address [address] [address] Care Team Providers Care Button Station Worker Name Role Phone CISCO BRADFORD Primary Care Provider [phone] Assessment Encounter Date Assessment Date Assessment LastModified by Organization Details LastModified Time 08/05/2024 08/05/2024 Mr. Gonzalez is here for assessment regarding peripheral artery disease. The patient denies any lower extremity claudication, rest pain or nonhealing ulceration. Duplex exam shows widely patent left fem/pop graft without any stenosis. ROBIN shows normal circulation bilaterally. His biggest concern is intermittent subjective feeling of heart racing/palpitat ion along with shortness of breath. PLAN: I asked him to follow with primary medical team. May need a cardiology consultation to rule out underlying arrhythmias. On my exam, he was noted to be in sinus rhythm with heart rate around 100 to 110. I asked him to continue taking aspirin and Plavix for time being. We will make arrangement for him to see Dr. Parsons next year with repeat left leg arterial duplex exam. klp Not available 08/06/2024 08:57:51 Plan of Treatment Reminders Order Date Submit Date Provider Last Modified By Organization Details Last Modified Time Details Appointments Imaging 5.PRO 2024 12:15P M Radiology Not available Not available Not available Establis hed Patient 15.EST 2024 01:30P M Dr. Humberto Parsons Not available Not available Not available Lab None recorded . Referral None recorded . Procedures None recorded . Surgeries None recorded . Imaging None recorded . Medication Orders None recorded . Patient TargetsNo targets recorded. Patient InstructionsNo instructions recorded. Reason for Referral None Reported. Results Created Date Observation Date Name Description Value Unit Range Abnormal Flag Note LastModifiedBy Organization Detail LastModifiedTime 08/05/20 24 08/05/2024 US, duple x, arter ial bypas s graft , lower extre mity, unila teral [facility] [address] [place] [id number] Teleph one [phone] Name: Robbin Gonzalez [id number] Exam Date: 2023 Age: 64 Physic mamta: Dennys george MD, Humberto : 1959 Examin ation: US GRAFT SCAN UNILAT LEFT LOWER Indica tion: 64-yea r-old man was seen today for assess ment regard ing periph eral arteri al diseas e, he has a histor y of left leg bypass FINDIN GS: Right ROBIN is 1.28 Left ROBIN is 1.26. Wavefo kaylie are tripha sic at ankle level. The bypass graft is well visual ized. The LCFA has a peak systol ic veloci ty of 104 cm/sec . The proxim al anasto mosis is a peak systol ic veloci ty of 94 cm/sec . The proxim al graft has a peak systol ic veloci ty of 115 cm/sec The mid graft has a peak systol ic veloci ty of 58 cm/sec . The distal graft has a peak systol ic veloci ty of 58 cm/sec . The distal anasto mosis has a peak systol ic veloci ty of 48 cm/sec . The distal [place] poplit eal artery has a peak systol ic veloci ty of 55 cm/sec . Impres ute: Right ankle brachi al index is normal . Left ankle brachi al index is normal . Left femora l poplit eal bypass Graft is widely patent withou t stenos is. Electr onical ly signed in Silver cribe by: SHMUEL GUZMÁN MD on: 4 5:14 PM cc: [facility] [address] [place] [address], [id number], 10/02/2024 15:37:35 Result Notes None recorded. Problems Name Problem SNOMED Code Status Onset Date Resolution Date Notes Provider Name and Address Organization Details Recorded Time Edema of lower extremity 496287164 Active 024 Nat Sevilla [facility] 14:36:22 Problem Notes None recorded. Procedures Surgical History Date Name Laterality Status Provider Name and Address Organization Details Recorded Time Appendectomy completed Not Available Health Note 07/29/2024 18:16:34 Colonoscopy with biopsy completed Not Available Health Note 07/29/2024 18:16:34 Create eardrum opening completed Not Available Health Note 07/29/2024 18:16:34 Imaging Results Imaging Date Name Status LastModified by Organiz ation Details LastModified Time 08/05/2024 US, duplex, arterial bypass graft, lower extremity, unilateral completed [facility] [address] [place] [address], [id number], 10/02/2024 15:37:35 Procedure Notes None recorded. Medical Equipment None Reported. Allergies No known drug allergies Medications Name Sig Start Date Stop Date Status Note LastModified by Organization Details LastModified Time metformin 500 mg tablet 500 MG ORALLY TWICE A DAY 08/05 completed Not Available Not Available Not Available hydrocodone 5 mg-acetamin ophen 325 mg tablet 1 (ONE) OR 2 (TWO) TABLET BY MOUTH EVERY SIX HOURS, NEEDED 08/05 completed Not Available Not Available Not Available carbidopa ER 50 mg-levodopa 200 mg tablet,exte nded release TAKE 1 TABLET BY MOUTH TWICE A DAY 08/05 completed Not Available Not Available Not Available clopidogrel 75 mg tablet Take 1 tablet every day by oral route. active Not Available Not Available No t Available tramadol 50 mg tablet 1 (ONE) TABLET EVERY 6-HOURS NEEDED 08/05 completed Not Available Not Available Not Available hydrocortis one acetate 25 mg rectal suppository UNWRAP AND INSERT 1 SUPPOSITO RY RECTALLY DAILY 08/05 completed Not Available Not Available Not Available lorazepam 0.5 mg tablet TAKE 1 TABLET BY MOUTH 1 HOUR PRIOR TO APPT 08/05 completed Not Available Not Available Not Available metformin 1,000 mg tablet Take 1 tablet twice a day by oral route. active Not Available Not Available No t Available lisinopril 10 mg tablet Take 1 tablet every day by oral route. active Not Available Not Available No t Available docusate sodium 100 mg capsule TAKE 1 SOFTGEL BY MOUTH EVERY DAY AT BEDTIME 08/05 completed Not Available Not Available Not Available finasteride 5 mg tablet Take 1 tablet every day by oral route. active Not Available Not Available No t Available rosuvastati n 20 mg tablet Take 1 tablet every day by oral route. active Not Available Not Available No t Available lactulose 10 gram/15 mL oral solution 10 G (15 ML) ORALLY DAILY NEEDED FOR CONSTIPAT ION 08/05 completed Not Available Not Available Not Available Trulicity 1.5 mg/0.5 mL subcutaneou s pen injector Inject by subcutane ous route. active Not Available Not Available No t Available Xtandi 80 mg tablet Take 2 tablets every day by oral route. active Not Available Not Available No t Available Vitals Date Recorded Body weight Provider Name an d Address Organization Details Last Updated DateTime 08/05/2024 45204.66 g [facility] 08/05/2024 13:43:21 Date Recorded Heart rate Provider Name an d Address Organization Details Last Updated DateTime 08/05/2024 110 /min [facility] 08/05/2024 13:44:00 Date Recorded Oxygen saturation Oxygen saturation in Arterial blood by Pulse oximetry Provider Name and Address Organization Details Last Updated DateTime 08/05/2024 98 % 98 % [facility] 08/05/2024 13:44:06 Date Recorded Systolic blood pressure Diastolic blood pressure Provider Name and Address Organization Details Last Updated DateTime 08/05/2024 148 mm[Hg] 88 mm[Hg] [facility] 08/05/2024 13:43:32 Date Recorded Systolic blood pressure Diastolic blood pressure Provider Name and Address Organization Details Last Updated DateTime 08/05/2024 150 mm[Hg] 88 mm[Hg] [facility] 08/05/2024 13:43:49 Social History Question Answer Notes LastModified by Organizat ion Details LastModified Time Tobacco Smoking Status Former Smoker Not Available Health Note 07/29/2024 18:16:34 Do You Have An Advance Directive? No [email or web address] Information not available 07/29/2024 What Is Your Level Of Alcohol Consumption? None [email or web address] Information not available 07/29/2024 What Is Your Level Of Caffeine Consumption? Occasional [email or web address] Information not available 07/29/2024 Are You Currently Employed? Yes [email or web address] Information not available 07/29/2024 What Is Your Occupation? [employer] [email or web address] Information not available 07/29/2024 How Many Times Per Week Do You Exercise? Less Than 1 Time Per Week [email or web address] Information not available 07/29/2024 When Did You Quit Smoking? 2010 [email or web address] Information not available 07/29/2024 What Was The Date Of Your Most Recent Tobacco Screening? 08/05/2024 [email or web address] Information not available 07/29/2024 What Is Your Relationship Status? [email or web address] Information not available 07/29/2024 Do You Use Any Illicit Or Recreational Drugs? No [email or web address] Information not available 07/29/2024 Sex: Unknown Functional Status Question Answer Note LastModified by Organizat ion Details LastModified Time What is your exercise level? Occasional [email or web address] Information not available 07/29/2024 Mental Status None recorded. Family History Relationship Description Onset Age of this Age Resolved Age Notes LastModified by Organization Details LastModified Time Father Alzheimer's disease [email or web address] Not available 2023 18:16:33 Paternal Grandfather Arthritis [email or web address] Not available 07/12 18:16:33 Sister Family history of malignant neoplasm [email or web address] Not available 2023 18:16:33 Maternal Grandmother Diabetes mellitus [email or web address] Not available 2023 18:16:33 Maternal Grandmother Hypertensive disorder [email or web address] Not available 2023 18:16:33 Unspecified Relation Hypercholest erolemia [email or web address] Not available 2023 18:16:33 Medical History Condition Response Anxiety Disorder N Diabetes Y Bleeding Disorder N Attention-deficit Hyperactivity Disorder N High Blood Pressure Y Arthritis Y Hyperlipidemia N Cancer Y Thyroid Problems N Stroke N COPD N Depression N Asthma N Seizures N Anemia N Heart Disease N Fibromyalgia N Osteoporosis N Kidney Disease N Past Encounters Encounter ID Performer Location Encounter Start Date Encounter Closed Date Diagnosis/Indication Diagnosis SNOMED-CT Code Diagnosis ICD10 Code Diagnosis Note [id number] Shmuel Guzmán MD [address] [facility] [address] [place] [address] 08/05/2024 12:35:44 08/05/2024 14:32:55 Peripheral arterial disease 856852920 I73.9 Tachycardia 7471187 R00. 0 Dyspnea 985469365 R06.02 Health Concerns Section Related Observation LastModified by Organization Detai goldie LastModified Time None Recorded Concern Status LastModified by Organization Details LastModified Time None Recorded Advance Directives Directive N: Payers Encounter Date Sequence Insurance Name Policy Number Policy Jaquez Covered Member ID Jaquez Member ID Guarantor Name 08/05/2024 1 [facility] [id number] vinh Gonzalez [id number] Robbin Gonzalez Notes Date Note Type Note Provider Name and Address Organization Details Recorded Time 08/05/2024 text/html This is a 64-year-old male who is here for assessment regarding right peripheral artery disease. The patient follows Dr. Parsons for last 14 years. He was last seen in June 2023 with arterial duplex exam showing widely patent left fem/pop bypass graft with normal ROBIN bilaterally. He has been doing well. Denies any lower extremity claudication, rest pain or nonhealing ulceration. He takes aspirin and Plavix without any bleeding complication. The patient was scheduled for assessment regarding peripheral artery disease and annual surveillance regarding bypass graft.He underwent left lower extremity arterial duplex exam, which shows widely patent left fem/pop bypass graft without any area of stenosis. Right ROBIN 1.28, left ROBIN 1.26 with triphasic waveforms bilaterally. The patient has been dealing with significant intermittent shortness of breath for last few weeks. He also feels palpitation at rest as well. He has not been evaluated by cardiology team at this point. Denies any chest pain. Denies any history of smoking at this point.p Shmuel Guzmán MD [address] [place] [address], [id number], [facility] 08/06/2024 19:41:45
== END 2024-10-02 12:08 | disposition home or self-care (01) ==
PROVIDERS: PCP Family Medicine; Visit Provider Internal Medicine Cardiovascular Disease
DX: R06.09 Other forms of dyspnea (principal)
CPT/HCPCS: 93306

== ENCOUNTER 2025-02-04 08:07 | Outpatient (CLI) | payer MEDICARE, SELFPAY ==
[2025-02-07 14:24] LABS: Testosterone Total 6 ng/dL (250-1100)
== END 2025-02-04 08:08 | disposition home or self-care (01) ==
PROVIDERS: PCP Family Medicine; Visit Provider Urology
DX: Z19.1 Hormone sensitive malignancy status (principal)
CPT/HCPCS: 36415; 84403

== ENCOUNTER 2025-03-07 07:21 | Outpatient (CLI) | payer MEDICARE, SELFPAY ==
[2025-03-07 07:59] LABS: Alanine Aminotransferase 23 U/L (6-50); Albumin Level 4.4 g/dL (3.5-5.1); Alkaline Phosphatase 80 U/L (38-126); Anion Gap 10 mmol/L (4-12); Aspartate Amino Transferase 38 U/L (17-59); Bilirubin,Total 0.7 mg/dL (0.2-1.3); Blood Urea Nitrogen 16 mg/dL (9-20); Carbon Dioxide 24 mmol/L (22-30); Chloride 106 mmol/L (98-107); Cholesterol 157 mg/dL (0-200); Estimated Glomerular Filt Rate > 60; Glucose 109 mg/dL (65-110); HDL Direct 50 mg/dL; LDL Cholesterol Calculated 76 mg/dL (<130); Osmolality Calculated 292 mOsm/kg (285-295); Potassium 4.4 mmol/L (3.4-5.0); Sodium 140 mmol/L (137-145); Total Protein 7.1 g/dL (6.3-8.2); Triglycerides 153 mg/dL (<150)
== END 2025-03-07 07:22 | disposition home or self-care (01) ==
LOC: CHSLAB 07:23
PROVIDERS: PCP Family Medicine; Visit Provider Internal Medicine Cardiovascular Disease
DX: E78.5 Hyperlipidemia, unspecified (principal)
CPT/HCPCS: 36415; 80053; 80061

== ENCOUNTER 2025-06-17 08:21 | Outpatient (CLI) | payer MEDICARE, SELFPAY ==
[2025-06-17 08:46] LABS: Hematocrit 37.4 % (37.0-46.0); Hemoglobin 12.5 g/dL (12.4-15.3); Immature Granulocyte Percent A 0.5 % (0.0-0.0); Lymphocytes Absolute Auto 2.10 K/mm3 (1.10-4.50); Mean Corpuscular HGB Conc 33.4 g/dL (32-36); Mean Corpuscular Hemoglobin 30.3 pg (27.0-31.0); Mean Corpuscular Volume 90.8 fL (78.0-102.0); Nucleated Red Blood Cells Absolute Auto 0.00 K/mm3 (0.00-0.00); Nucleated Red Blood Cells Perc 0.0 % (0-0.0); Platelet Count Result 285 K/mm3 (150-420); Red Blood Count 4.12 M/mm3 (4.70-6.10); White Blood Count 7.4 K/mm3 (4.8-10.8)
[2025-06-17 08:58] LABS: INR 1.0; Prothrombin Time 11.4 Seconds (9.50-12.1)
[2025-06-17 09:32] LABS: Anion Gap 15 mmol/L (4-12); Blood Urea Nitrogen 10 mg/dL (9-20); Calcium 10.9 mg/dL (8.4-10.2); Carbon Dioxide 22 mmol/L (22-30); Chloride 106 mmol/L (98-107); Estimated Glomerular Filt Rate > 60; Glucose 148 mg/dL (65-110); Osmolality Calculated 298 mOsm/kg (285-295); Potassium 5.1 mmol/L (3.4-5.0); Sodium 143 mmol/L (137-145)
== END 2025-06-17 08:22 | disposition home or self-care (01) ==
PROVIDERS: PCP Family Medicine
DX: I47.10 Supraventricular tachycardia, unspecified (principal)
CPT/HCPCS: 36415; 80048; 85025; 85610